=== PATIENT | male | born 1965 | race Caucasian/White ===

== ENCOUNTER 2018-01-24 22:04 | Emergency (ER) | payer OTHER ==
[~2018-01-24] VITALS: Ht 167.6 cm; Wt 86.2 kg
[2018-01-24 22:18] VITALS: Ht 167.6 cm; Wt 86.2 kg
[2018-01-24 23:42] VITALS: BP 124/86
== END 2018-01-24 23:42 | disposition other institution (70) ==
LOC: ED 22:04
DX: Z02.89 Encounter for other administrative examinations (principal)